=== PATIENT | male | born 1990 | race Caucasian/White ===

== ENCOUNTER 2024-02-06 16:18 | Observation (INO) | payer SELFPAY ==
[2024-02-06 16:23] VITALS: BP 145/93; PULSE 106; RESP 16; TEMP 36.9; O2SAT 98; BMI 26.9
[2024-02-06 17:37] LABS: Basophils # 0.1 10^3/uL (0.0-0.1); Basophils % 0.6 %; Eosinophils # 0.3 10^3/uL (0.0-0.8); Mean Corpuscular HGB Conc 32.6 g/dL (30-55); Mean Corpuscular Hemoglobin 32.1 pg (27-33); Mean Corpuscular Volume 98.3 fl (82-101); Mean Platelet Volume 11.1 fL (7.4-10.4); Monocytes # 1.1 10^3/uL (0.2-0.9); Monocytes % 8.8 %; Neutrophils # 8.39 10^3/uL (1.8-7.7); Neutrophils % 65.2 %; Nucleated Red Blood Cells % 0 %; Platelet Count 229 10^3/cmm (157-399); Red Blood Count 4.68 10^6/uL (3.85-5.65); Red Cell Distribution Width 12.5 % (12.1-15.1); White Blood Count 12.89 10^3/uL (3.29-11.43)
[2024-02-06 17:49] LABS: Alanine Aminotransferase 227 U/L (0-41); Albumin Level 4.4 g/dL (3.5-5.2); Alkaline Phosphatase 125 U/L (40-130); Aspartate Amino Transferase 347 U/L (0-40); Blood Urea Nitrogen 5 mg/dL (6-20); Calcium 8.6 mg/dL (8.5-10.5); Carbon Dioxide 24 mmol/L (22-29); Chloride 104 mmol/L (98-107); Creatinine Clr Calc Pharmacy 250.2943; Globulin 3.6 g/dL (1.3-4.6); Glomerular Filtration Rate 193.9 mL/min (90-130); Glucose 97 mg/dL (65-115); Osmolality Calculated 291 mOsm/kg (285-295); Sodium 142 mmol/L (136-145); Total Bilirubin 0.7 mg/dL (0.15-1.2)
[2024-02-06 19:01] LABS: Add Urine Microscopic? NO; Charge for UA Resulting for Rev
--- NOTE | 2024-02-06 19:02 | CTR_ITS ---
PROCEDURE INFORMATION: Exam: CT Abdomen And Pelvis With Contrast Exam date and time: 02/06/2024 8:04 PM Age: 33 years old Clinical indication: Abdominal pain; Other: Bilateral flank; Patient HX: Constipation 5 days; Additional info: Flank/abd pain x 1 week TECHNIQUE: Imaging protocol: Computed tomography of the abdomen and pelvis with contrast. Radiation optimization: All CT scans at this facility use at least one of these dose optimization techniques: automated exposure control; mA and/or kV adjustment per patient size (includes targeted exams where dose is matched to clinical indication); or iterative reconstruction. Contrast material: OMNI 350; Contrast volume: 100 ml; Contrast route: INTRAVENOUS (IV); COMPARISON: No relevant prior studies available. RADIATION DOSE METRICS: Total DLP (mGy-cm): 797 FINDINGS: Liver: Normal. No mass. Gallbladder and bile ducts: Gallbladder is somewhat prominent, ultrasound could further characterize this. Pancreas: Normal. No ductal dilation. Spleen: Normal. No splenomegaly. Adrenal glands: Normal. No mass. Kidneys and ureters: Normal. No hydronephrosis. Stomach and bowel: 12 mm small abscess containing fluid and air adjacent to the proximal sigmoid colon anteriorly, series 3, image 72, likely secondary to diverticulitis. Associated sigmoid colon wall thickening is also seen consistent with diverticulitis. Appendix: No evidence of appendicitis. Intraperitoneal space: Unremarkable. No free air. No significant fluid collection. Vasculature: Unremarkable. No abdominal aortic aneurysm. Lymph nodes: Unremarkable. No enlarged lymph nodes. Urinary bladder: Unremarkable as visualized. Reproductive: Unremarkable as visualized. Bones/joints: Unremarkable. No acute fracture. Soft tissues: Unremarkable. Other findings: Small amount of nonspecific fluid in the pelvis. CT/CT abdomen pelvis w con* [id number] IMPRESSION: 1. 12 mm small abscess containing fluid and air adjacent to the proximal sigmoid colon anteriorly, series 3, image 72, likely secondary to diverticulitis. Associated sigmoid colon wall thickening is also seen consistent with diverticulitis. 2. Small amount of nonspecific fluid in the pelvis. 3. Gallbladder is somewhat prominent, ultrasound could further characterize this.
--- NOTE | 2024-02-06 19:03 | ED_ITS ---
Documented by User: YANCY Quinones 02/06/24 21:16 HPI - Abdominal Pain 2 General: Chief Complaint: Abdominal Pain Stated Complaint: Burning in kidneys & Rash Time Seen by Provider: 02/06/24 18:57 Source: patient Mode of arrival: ambulatory Limitations: no limitations History of Present Illness: Patient is a 33-year-old male presenting to the emergency department complaining of bilateral flank pain onset 1 week. Patient states my kidneys are burning and states that he has been having some burning with urination. He also notes that the pain seems to wrap around ventrally to his abdomen, denies any personal history of pyelonephritis or kidney stones. He also notes that he is unable to eat due to the amount of nausea he has been having. He denies any blood in his urine though notes it has been very dark. He states he is a hypochondriac and just wants to make sure he is not in kidney failure. He also is noting a rash that has been treated in the past with topical antifungals, and states that his back. No other symptoms to report at this time. He states currently his pain is a 5/10. It does feel sharp, and overall has been constant since onset. MD elicited complaint: flank pain Pertinent past history: none Onset (ago): week(s) Pain Consistency: constant Location: L flank and R flank Severity: moderate Quality: sharp Radiation: LLQ and RLQ Exacerbating factors: nothing Relieving factors: nothing Associated Symptoms: Reports dysuria, nausea and vomiting; Denies bloating, change in stool character, chills, constipation, diarrhea, fever(s) and hematochezia Review of Systems 2 General: Reports: 10 or more systems reviewed and unremarkable except in HPI and below Const: Denies: fever(s), chills, change in appetite, change in weight or diaphoresis ENMT: Denies: throat pain or hoarseness Card: Denies: chest pain, palpitations or lightheadedness Resp: Denies: dyspnea, productive cough or wheezing GI: Reports: abdominal pain, nausea and vomiting; Denies: diarrhea, constipation, bloating, change in stool character or hematochezia : Reports: flank pain and dysuria; Denies: difficulty urinating, urinary frequency or urinary urgency Musc: Denies: neck pain or back pain Skin/Breast: Reports: rash; Denies: new lesions Neuro: Denies: headache(s) or dizziness PFSH ED 2 PFSH: Medical History Migraines Surgical History History of surgery on arm Family History Mother Irritable bowel syndrome (IBS) Social History Smoking and tobacco/nicotine status: current every day tobacco/nicotine user Alcohol intake: current Substance/Drug Use: current Physical Exam 2 Const: COMMON NORMALS: no acute distress, average body habitus, patient oriented x3, no limitations, healthy appearing, alert and well nourished G ENERAL APPEARANCE: cooperative and comfortable ORIENTATION/CONSCIOUSNESS: Yes awake HENMT: COMMON NORMALS: normocephalic, atraumatic, hearing grossly normal bilaterally, external ears normal, Normal external nose present, Normal nasal mucous membranes and turbinates present and moist oral mucous membranes HEAD & SCALP: normocephalic and atraumatic NOSE: Normal external nose present and Normal nasal mucous membranes and turbinates present EXTERNAL EAR: Yes external ears normal Eye: COMMON NORMALS: Equal, round and reactive pupils present, EOMs intact bilaterally, conjunctivae normal and normal visual box by confrontation C ONJUNCTIVA: Yes conjunctivae normal PUPIL: Yes Equal, round and reactive pupils present Neck/C-Spine: COMMON NORMALS: full ROM, supple, no meningeal signs and no JVD Resp: COMMON NORMALS: normal respiratory effort, No retractions, No use of accessory muscles and clear to auscultation bilaterally AUSCULTATION: clear to auscultation bilaterally, no crackles, no rales, no rhonchi and no wheezes Cardio: COMMON NORMALS: no JVD, regular rate, regular rhythm, S1 normal heart sound present, S2 normal heart sound present, No gallops present (Cardio), No clicks present (Cardio), No murmurs present (Cardio), No rub (Cardio) and Peripheral pulses 2+ throughout RATE: regular rate RHYTHM: regular rhythm HEART SOUNDS: S1 normal heart sound present and S2 normal heart sound present PERIPHERAL PULSES: Peripheral pulses 2+ throughout GI: COMMON NORMALS: Normal to inspection, nondistended, normoactive bowel sounds present, Soft to palpation, non-tender, No hepatosplenomegaly present and no masses AUSCULTATION: Yes normoactive bowel sounds PALPATION: Yes Soft to palpation, No Guarding due to palpation present (GI), No Rigid due to palpation and Yes No hepatosplenomegaly present RECTAL EXAM: Yes deferred : COMMON NORMALS: Yes no CVA tenderness BLADDER/KIDNEY EXAM: Yes no CVA tenderness Back/Pelvis: COMMON NORMALS: no CVA tenderness Extremity: COMMON NORMALS: normal to inspection and full ROM Neuro: COMMON NORMALS: patient oriented x3, moves all extremities, no focal motor deficits and no sensory deficits noted SENSORIUM/ORIENTATION: Yes alert MENINGEAL SIGNS: Yes no meningeal signs Psych: COMMON NORMALS: mental status grossly normal, cooperative and speech normal SPEECH: Yes normal speech Skin: NARRATIVE SKIN EXAM: Fungal appearing rash to patient's neck and bilateral shoulders. Course 2 Vital Signs: Vital signs: Vital Signs Temperature 97.8 F 02/09/24 14:35 Pulse Rate 57 L 02/09/24 14:35 Respiratory Rate 18 02/09/24 14:35 Blood Pressure 127/77 02/09/24 14:35 Pulse Oximetry 98 02/09/24 14:35 Oxygen Delivery Me thod Room Air 02/09/24 11:48 MDM - Abdominal Pain Medical Decision Making Patient came in for evaluation of bilateral flank pain. Patient was anxious on examination, though overall his examination was unremarkable. Basic lab work and urinalysis was all negative. I did scan his abdomen and pelvis via CT, the did show incidental 12 mm abscess to the sigmoid colon, likely secondary to diverticulitis. I did speak with on-call general surgeon, Dr. Cuenca, who will see the patient after admission to medicine. I then spoke with Dr. Vela, hospitalist, who will see the patient in the hospital. Patient is started on antibiotics, morphine, fluids, and Zofran. He is informed of admission and verbalizes understanding. Lab Data 02/08/24 08:50 02/08/24 08:50 Labs/Radiology: Radiology Impressions Abdomen/Pelvis CT 02/06/24 19:02 IMPRESSION: 1. 12 mm small abscess containing fluid and air adjacent to the proximal sigmoid colon anteriorly, series 3, image 72, likely secondary to diverticulitis. Associated sigmoid colon wall thickening is also seen consistent with diverticulitis. 2. Small amount of nonspecific fluid in the pelvis. 3. Gallbladder is somewhat prominent, ultrasound could further characterize this. ADDENDUM: 02/06/242056 THIS REPORT CONTAINS FINDINGS THAT MAY BE CRITICAL TO PATIENT CARE. The findings were verbally communicated via telephone conference with AVANI VELASCO at 8:56 PM CDT on 02/06/2024. The findings were acknowledged and understood. Laboratory Results WBC 12.89 10^3/uL (3.29-11.43) H 02/06/24 17:10 RBC 4.68 10^6/uL (3.85-5.65) 02/06/24 17:10 Hgb 15.00 g/dL (11.27-16.99) 02/06/24 17:10 Hct 46.0 % (37-53) 02/06/24 17:10 MCV 98.3 fl (82-101) 02/06/24 17:10 MCH 32.1 pg (27-33) 02/06/24 17:10 MCHC 32.6 g/dL (30-55) 02/06/24 17:10 RDW 12.5 % (12.1-15.1) 02/06/24 17:10 Plt Count 229 10^3/cmm (157-399) 02/06/24 17:10 MPV 11.1 fL (7.4-10.4) H 02/06/24 17:10 Neut % (Auto) 65.2 % 02/06/24 17:10 Lymph % (Auto) 23.0 % 02/06/24 17:10 Wood % (Auto) 8.8 % 02/06/24 17:10 Eos % (Auto) 2.0 % 02/06/24 17:10 Baso % (Auto) 0.6 % 02/06/24 17:10 Neut # (Auto) 8.39 10^3/uL (1.8-7.7) H 02/06/24 17:10 Lymph # (Auto) 3.0 10^3/uL (0.8-4.8) 02/06/24 17:10 Wood # (Auto) 1.1 10^3/uL (0.2-0.9) H 02/06/24 17:10 Eos # (Auto) 0.3 10^3/uL (0.0-0.8) 02/06/24 17:10 Baso # (Auto) 0.1 10^3/uL (0.0-0.1) 02/06/24 17:10 Nucleated RBC % (auto) 0 % 02/06/24 17:10 Nucleated RBCs # 0.0 /100WBC 02/06/24 17:10 Sodium 142 mmol/L (136-145) 02/06/24 17:10 Potassium 4.0 mmol/L (3.5-5.1) 02/06/24 17:10 Chloride 104 mmol/L (98-107) 02/06/24 17:10 Carbon Dioxide 24 mmol/L (22-29) 02/06/24 17:10 Anion Gap 18.0 (5-19) 02/06/24 17:10 BUN 5 mg/dL (6-20) L 02/06/24 17:10 Creatinine 0.5 mg/dL (0.7-1.2) L 02/06/24 17:10 GFR Calculation 193.9 mL/min (90-130) H 02/06/24 17:10 Glucose 97 mg/dL (65-115) 02/06/24 17:10 Calculated Osmolality 291 mOsm/kg (285-295) 02/06/24 17:10 Calcium 8.6 mg/dL (8.5-10.5) 02/06/24 17:10 Total Bilirubin 0.7 mg/dL (0.15-1.2) 02/06/24 17:10 AST 347 U/L (0-40) H 02/06/24 17:10 ALT 227 U/L (0-41) H 02/06/24 17:10 Alkaline Phosphatase 125 U/L (40-130) 02/06/24 17:10 Total Protein 8.0 g/dL (6.6-8.7) 02/06/24 17:10 Albumin 4.4 g/dL (3.5-5.2) 02/06/24 17:10 Globulin 3.6 g/dL (1.3-4.6) 02/06/24 17:10 Urine Color Yellow (Yellow) 02/06/24 18:53 Urine Appearance Clear (CLEAR) 02/06/24 18:53 Urine pH 6 (5-7) 02/06/24 18:53 Ur Specific [place] 1.020 (1.005-1.030) 02/06/24 18:53 Urine Protein Neg (Negative) 02/06/24 18:53 Urine Glucose (UA) Norm (Normal) 02/06/24 18:53 Urine Ketones 1+ (Negative) H 02/06/24 18:53 Urine Blood Neg (Negative) 02/06/24 18:53 Urine Nitrate Negative (Negative) 02/06/24 18:53 Urine Bilirubin 2+ (Negative) H 02/06/24 18:53 Urine Urobilinogen 4+ mg/dL (Negative) H 02/06/24 18:53 Ur Leukocyte Esterase Negative (Negative) 02/06/24 18:53 All radiology interpretation(s) finalized by discharge Discharge Plan Discharge Patient Disposition: Placed in Observation Admit Provider: Misha Vela Clinical Impression: Abscess of sigmoid colon Discharge Diet: Full LIquid Coding Level of Care Code ED Ultra Sound Technician for Chg Fwd Documented by User: Harvey Dunaway DO 02/10/24 06:24 HPI - Abdominal Pain 2 General: Chief Complaint: Abdominal Pain Stated Complaint: Burning in kidneys & Rash Time Seen by Provider: 02/06/24 18:57 PFS ED 2 PFSH: Medical History Migraines Surgical History History of surgery on arm Family History Mother Irritable bowel syndrome (IBS) Social History Smoking and tobacco/nicotine status: current every day tobacco/nicotine user Alcohol intake: current Substance/Drug Use: current Course 2 Vital Signs: Vital signs: Vital Signs Temperature 97.8 F 02/09/24 14:35 Pulse Rate 57 L 02/09/24 14:35 Respiratory Rate 18 02/09/24 14:35 Blood Pressure 127/77 02/09/24 14:35 Pulse Oximetry 98 02/09/24 14:35 Oxygen Delivery Me thod Room Air 02/09/24 11:48 MDM - Abdominal Pain Medical Decision Making Patient came in for evaluation of bilateral flank pain. Patient was anxious on examination, though overall his examination was unremarkable. Basic lab work and urinalysis was all negative. I did scan his abdomen and pelvis via CT, the did show incidental 12 mm abscess to the sigmoid colon, likely secondary to diverticulitis. I did speak with on-call general surgeon, Dr. Cuenca, who will see the patient after admission to medicine. I then spoke with Dr. Vela, hospitalist, who will see the patient in the hospital. Patient is started on antibiotics, morphine, fluids, and Zofran. He is informed of admission and verbalizes understanding. Chart reviewed Lab Data 02/08/24 08:50 02/08/24 08:50 Labs/Radiology: Radiology Impressions Abdomen/Pelvis CT 02/06/24 19:02 IMPRESSION: 1. 12 mm small abscess containing fluid and air adjacent to the proximal sigmoid colon anteriorly, series 3, image 72, likely secondary to diverticulitis. Associated sigmoid colon wall thickening is also seen consistent with diverticulitis. 2. Small amount of nonspecific fluid in the pelvis. 3. Gallbladder is somewhat prominent, ultrasound could further characterize this. ADDENDUM: 02/06/242056 THIS REPORT CONTAINS FINDINGS THAT MAY BE CRITICAL TO PATIENT CARE. The findings were verbally communicated via telephone conference with AVANI VELASCO at 8:56 PM CDT on 02/06/2024. The findings were acknowledged and understood. Laboratory Results WBC 12.89 10^3/uL (3.29-11.43) H 02/06/24 17:10 RBC 4.68 10^6/uL (3.85-5.65) 02/06/24 17:10 Hgb 15.00 g/dL (11.27-16.99) 02/06/24 17:10 Hct 46.0 % (37-53) 02/06/24 17:10 MCV 98.3 fl (82-101) 02/06/24 17:10 MCH 32.1 pg (27-33) 02/06/24 17:10 MCHC 32.6 g/dL (30-55) 02/06/24 17:10 RDW 12.5 % (12.1-15.1) 02/06/24 17:10 Plt Count 229 10^3/cmm (157-399) 02/06/24 17:10 MPV 11.1 fL (7.4-10.4) H 02/06/24 17:10 Neut % (Auto) 65.2 % 02/06/24 17:10 Lymph % (Auto) 23.0 % 02/06/24 17:10 Wood % (Auto) 8.8 % 02/06/24 17:10 Eos % (Auto) 2.0 % 02/06/24 17:10 Baso % (Auto) 0.6 % 02/06/24 17:10 Neut # (Auto) 8.39 10^3/uL (1.8-7.7) H 02/06/24 17:10 Lymph # (Auto) 3.0 10^3/uL (0.8-4.8) 02/06/24 17:10 Wood # (Auto) 1.1 10^3/uL (0.2-0.9) H 02/06/24 17:10 Eos # (Auto) 0.3 10^3/uL (0.0-0.8) 02/06/24 17:10 Baso # (Auto) 0.1 10^3/uL (0.0-0.1) 02/06/24 17:10 Nucleated RBC % (auto) 0 % 02/06/24 17:10 Nucleated RBCs # 0.0 /100WBC 02/06/24 17:10 Sodium 142 mmol/L (136-145) 02/06/24 17:10 Potassium 4.0 mmol/L (3.5-5.1) 02/06/24 17:10 Chloride 104 mmol/L (98-107) 02/06/24 17:10 Carbon Dioxide 24 mmol/L (22-29) 02/06/24 17:10 Anion Gap 18.0 (5-19) 02/06/24 17:10 BUN 5 mg/dL (6-20) L 02/06/24 17:10 Creatinine 0.5 mg/dL (0.7-1.2) L 02/06/24 17:10 GFR Calculation 193.9 mL/min (90-130) H 02/06/24 17:10 Glucose 97 mg/dL (65-115) 02/06/24 17:10 Calculated Osmolality 291 mOsm/kg (285-295) 02/06/24 17:10 Calcium 8.6 mg/dL (8.5-10.5) 02/06/24 17:10 Total Bilirubin 0.7 mg/dL (0.15-1.2) 02/06/24 17:10 AST 347 U/L (0-40) H 02/06/24 17:10 ALT 227 U/L (0-41) H 02/06/24 17:10 Alkaline Phosphatase 125 U/L (40-130) 02/06/24 17:10 Total Protein 8.0 g/dL (6.6-8.7) 02/06/24 17:10 Albumin 4.4 g/dL (3.5-5.2) 02/06/24 17:10 Globulin 3.6 g/dL (1.3-4.6) 02/06/24 17:10 Urine Color Yellow (Yellow) 02/06/24 18:53 Urine Appearance Clear (CLEAR) 02/06/24 18:53 Urine pH 6 (5-7) 02/06/24 18:53 Ur Specific [place] 1.020 (1.005-1.030) 02/06/24 18:53 Urine Protein Neg (Negative) 02/06/24 18:53 Urine Glucose (UA) Norm (Normal) 02/06/24 18:53 Urine Ketones 1+ (Negative) H 02/06/24 18:53 Urine Blood Neg (Negative) 02/06/24 18:53 Urine Nitrate Negative (Negative) 02/06/24 18:53 Urine Bilirubin 2+ (Negative) H 02/06/24 18:53 Urine Urobilinogen 4+ mg/dL (Negative) H 02/06/24 18:53 Ur Leukocyte Esterase Negative (Negative) 02/06/24 18:53 Discharge Plan Discharge Patient Disposition: Placed in Observation Admit Provider: Misha Vela Clinical Impression: Abscess of sigmoid colon Discharge Diet: Full LIquid Coding Level of Care Code ED Ultra Sound Technician for Chg Fwd
[2024-02-06 19:17] LABS: Bilirubin Urine 2+ (Negative); Blood Urine Neg (Negative); Glucose Urine UA Norm (Normal); Ketones Urine 1+ (Negative); Leukocyte Esterase Urine Negative (Negative); Nitrate Urine Negative (Negative); Protein Urine Neg (Negative); Urine Appearance Clear (CLEAR); Urine Color Yellow (Yellow); Urobilinogen Urine 4+ mg/dL (Negative); pH Urine 6 (5-7)
[2024-02-06] MEDS: ketorolac 60 mg/2 mL INJ 30 MG IVP (19:22)
[2024-02-06] MEDS: metoclopramide 5 mg/mL SDV 2 mL 10 MG IVP (19:24)
[2024-02-06] MEDS: iohexol 350 mg/mL 500 mL Btl (per mL) IV (20:06)
--- NOTE | 2024-02-06 21:04 | P.HP_ITS ---
Providers/Chief Complaint 2 Chief Complaint: Burning in kidneys & Rash History of Present Illness Chris Medellin is a 33 year old male with past medical history significant for migraines who presents emergency department with abdominal and back pain x 7 days. He describes the location of this pain is bilateral lower quadrant abdominal pain as well as bilateral lower back pains. He currently rates his pain 5 out of 10. Describes the pain as constant and sharp. He endorses associated nausea, subjective fevers, and constipation. Reports he took [id number] constipation medication earlier in the week with some improvement. In the emergency department, patient was found to be tachycardic. Labs revealed leukocytosis. CT imaging revealed 12 mm abscess adjacent to the proximal sigmoid colon associated with diverticulitis. Patient denies prior history of known diverticulitis. He denies family history of diverticulitis. Denies family history of colon cancer. Patient reports never had a colonoscopy. Patient was started on Zosyn. General surgery was consulted and agreed to see the patient in the a.m. Review of Systems 2 Narrative: A complete review of systems was obtained and is negative except as stated in HPI. Medications/Allergies Allergies Allergy/AdvReac Type Severity Reaction Status Date / Time cefixime [From Suprax] Allergy Unknown Verified 02/06/24 16:27 Sulfa (Sulfonamide Allergy Unknown Verified 02/06/24 16:27 Antibiotics) PFSH Acute 2 PFSH: Medical History Migraines Surgical History History of surgery on arm Family History Mother Irritable bowel syndrome (IBS) Social History Smoking and tobacco/nicotine status: current every day tobacco/nicotine user Alcohol intake: current Substance/Drug Use: current Vitals/I&O/Wt Last Vital Signs Temp 98.4 F 02/06/24 16:23 Pulse 106 H 02/06/24 16:23 Resp 16 02/06/24 16:23 BP 145/93 02/06/24 16:23 Pulse Ox 98 02/06/24 16:23 O2 Del Method Room Air 02/06/24 16:23 Weight last 48 hrs Weight 90.265 kg Physical Exam 2 Narrative: General: Patient is awake and alert. Head: Normocephalic. Atraumatic. EOM intact. Neck: No JVD. Cardiovascular: RRR. No gallops. No murmurs. No peripheral edema. Lungs: Clear to auscultation, no use of accessory muscles, no crackles or wheezes. Skin: No jaundice. No rashes. Abdomen: Normal bowel sounds. Abdomen is tender to palpation in lower quadrants. Genito Urinary: Genital exam not performed since complaints not related. Rectal: Rectal exam not performed since no symptoms indicated blood loss. Extremities: No cyanosis or clubbing. Musculoskeletal: 5/5 strength, normal range of motion, no swollen or erythematous joints. Neurological: Moves all 4 extremities. No myoclonus. Data 02/06/24 17:10 02/06/24 17:10 A&P Assessment and plan (1) Diverticulitis: Acute complicated sigmoidal diverticulitis with abscess formation and sepsis SIRS: Tachycardic and Leukocytosis with source being diverticulitis w/ abscess Abscess noted to be less than 3 cm, measuring 1.[address] imaging Patient started on Zosyn by ED provider, will continue with Zosyn Clear liquid diet Antiemetics as needed Analgesics as needed General surgery consulted Consider outpatient colonoscopy after complete recovery (2) Transaminitis: Suspect secondary to alcohol use disorder with alcohol abuse AST greater than ALT Patient reports he drinks alcohol every other day Denies history of alcohol withdrawal Monitor for symptoms of withdrawal Will consider CIWA protocol pending clinical course (3) Tobacco use: Reports typically half a pack to 1 pack/day We discussed nicotine replacement, patient declined He would benefit from smoking cessation (4) Marijuana use: Would benefit from cessation (5) Migraines: Analgesics as needed as above Plan DVT prophylaxis: Lovenox CODE STATUS: Full code Attestations 2 Medical Necessity Statement*: Patient presents with abdominal and flank pain, found to have acute complicated sigmoidal diverticulitis with abscess formation producing sepsis with expected hospitalization not to cross 2 midnights for IV antibiotics, general surgery evaluation, and supportive care. Coding Level of Care Code Acute Code for [facility] Diagnoses Diverticulitis K57.92 Transaminitis R74.01 Tobacco use Z72.0 Marijuana use F12.90 Migraines G43.909
[2024-02-06 21:47] VITALS: RESP 16; O2SAT 96
[2024-02-06] MEDS: ondansetron 2 mg/ML SDV 2 mL 4 MG IVP (21:47)
[2024-02-06] MEDS: morphine 4 mg/mL SDV 1 mL IVP (21:47)
[2024-02-06] MEDS: piperacillin-tazobactam 3.375 GM in sodium chloride 0.9% (plus) 50 ML IV (21:48)
[2024-02-06] MEDS: sodium chloride 0.9% 1,000 ML 999 ML IV (21:58)
[2024-02-06 22:45] VITALS: BP 145/79; PULSE 76; RESP 20; TEMP 36.9; O2SAT 95
[2024-02-06] MEDS: dextrose 5%-sod chloride 0.45% 1,000 ML 100 ML IV (23:43)
[2024-02-06] MEDS: enoxaparin 40 mg/0.4 mL Syringe SUBCUT (23:44)
[2024-02-06 23:47] VITALS: RESP 20; O2SAT 95
[2024-02-06] MEDS: oxyCODONE-APAP 5-325 mg Tablet 1 TAB PO (23:47)
[2024-02-07] VITALS (14 sets, daily range): BP systolic 107–130; BP diastolic 30–79; PULSE 59–76; RESP 14–20; TEMP 36.4–36.7; O2SAT 93–99
[2024-02-07] MEDS: nicotine 4 mg lozenge MUCOUS MEM (00:23)
[2024-02-07] MEDS: morphine 4 mg/mL SDV 1 mL 2 MG IVP ×5 (01:58→20:44)
[2024-02-07] MEDS: oxyCODONE-APAP 5-325 mg Tablet 1 TAB PO ×5 (04:36→22:13)
[2024-02-07 04:40] LABS: Basophils # 0.1 10^3/uL (0.0-0.1); Eosinophils # 0.3 10^3/uL (0.0-0.8); Eosinophils % 2.6 %; Lymphocytes # 2.9 10^3/uL (0.8-4.8); Lymphocytes % 27.2 %; Mean Corpuscular HGB Conc 32.8 g/dL (30-55); Mean Corpuscular Hemoglobin 32.2 pg (27-33); Mean Platelet Volume 11.5 fL (7.4-10.4); Monocytes # 1.1 10^3/uL (0.2-0.9); Monocytes % 10.6 %; Neutrophils # 6.15 10^3/uL (1.8-7.7); Neutrophils % 58.2 %; Nucleated Red Blood Cells % 0 %; Platelet Count 179 10^3/cmm (157-399); Red Blood Count 3.98 10^6/uL (3.85-5.65); Red Cell Distribution Width 12.4 % (12.1-15.1); White Blood Count 10.58 10^3/uL (3.29-11.43)
[2024-02-07 05:03] LABS: Alanine Aminotransferase 155 U/L (0-41); Albumin Level 3.5 g/dL (3.5-5.2); Alkaline Phosphatase 95 U/L (40-130); Anion Gap 12.6 (5-19); Aspartate Amino Transferase 188 U/L (0-40); Blood Urea Nitrogen 7 mg/dL (6-20); Calcium 8.2 mg/dL (8.5-10.5); Carbon Dioxide 23 mmol/L (22-29); Chloride 104 mmol/L (98-107); Globulin 2.8 g/dL (1.3-4.6); Glomerular Filtration Rate 193.9 mL/min (90-130); Glucose 95 mg/dL (65-115); Osmolality Calculated 280 mOsm/kg (285-295); Phosphorus 3.2 mg/dL (2.5-4.5); Potassium 3.6 mmol/L (3.5-5.1); Sodium 136 mmol/L (136-145); Total Bilirubin 0.6 mg/dL (0.15-1.2); Total Protein 6.3 g/dL (6.6-8.7)
[2024-02-07 05:04] LABS: Creatinine Clr Calc Pharmacy 254.7984
[2024-02-07] MEDS: piperacillin-tazobactam 3.375 GM in sodium chloride 0.9% (plus) 50 ML IV ×3 (06:20→22:14)
--- NOTE | 2024-02-07 09:35 | PC.CHAP ---
Pastoral Care Encounter/Spiritual Assessment Type of Contact [] Declined immigration patrol inspector visit [] Patient/Family/Request visit [] Outpatient visit [] Follow-up visit [] Physician referral [] Code/Alert [x] Routine visit [] Staff referral [] Actively dying [] Patient sleeping [] Family support [] [] Out of room [] Palliative care [] [] Receiving care in room [] Pre-surgical visit [] Trauma [] Long length of stay [] ICU visit [] Other: Relational/Emotional Strength [x] Patient feels connected with others/family/visitors/staff [] Distress [] Loneliness/isolation [] Abandonment Spirituality of Patient [x] Person of Mei [] Attends Catholic of their Mei [x] Believes in Prayer [] Reads Bible or Mormonism materials [] There are Spiritual issues to be addressed Development Lead Interventions [x] Prayer [] Active listening [] Non-anxious presence [x] Spiritual/emotional support [] Crisis/trauma care [] Spiritual counseling [] Bereavement support [] Provided bereavement packet [] Provided Bible/devotional materials [] Provided toy/stuffed animal, coloring book to patient or family member [] Provided Communion [] Anointing/[place] [] Salvation [x] Completed spiritual assessment [] Other: Impact on Illness or Injury [] Angry [] Fearful [] Anxious [] Often cries [] Exhaustion [] Unable to work [] Unable to attend episcopalian [] Unable to walk/stand [] Unable to read [] Unable to drive [] Unable to eat/drink [] Unable to sleep [] Unable to be with family [] Patient intubated [] Other: Summary Time spent with patient 5 min
[2024-02-07] MEDS: nicotine 2 mg Gum 4 MG BUCCAL ×2 (11:38→17:52)
[2024-02-07] MEDS: dextrose 5%-sod chloride 0.45% 1,000 ML 100 ML IV (11:39)
--- NOTE | 2024-02-07 11:46 | PC.NURSE ---
Morphine 2mg given to patient. 2mg wasted with SEDA Villarreal on medsur floor.
--- NOTE | 2024-02-07 13:31 | P.PN_ITS ---
Subjective 2 Subjective: seen this morning has mild abd pain Vitals/I&O/Wt Last Vital Signs Temp 97.7 F 02/07/24 12:09 Pulse 62 02/07/24 12:09 Resp 16 02/07/24 13:11 BP 113/75 02/07/24 12:09 Pulse Ox 93 02/07/24 12:09 O2 Del Method Room Air 02/07/24 12:09 02/06/24 02/07/24 02/07/24 22:59 06:59 14:59 Intake Total 50 / 50 1480 / 1530 2009 Balance 50 / 50 1480 / 1530 2009 Weight last 48 hrs Weight 93.984 kg Weight 93.758 kg Weight 90.265 kg Physical Exam 2 Narrative: General: Patient is awake and alert. Head: Normocephalic. Atraumatic. EOM intact. Cardiovascular: RRR. No gallops. No murmurs. No peripheral edema. Lungs: Clear to auscultation, no use of accessory muscles, no crackles or wheezes. Abdomen: Normal bowel sounds. Abdomen is tender to palpation in lower quadrants. Extremities: No cyanosis or clubbing. Musculoskeletal: 5/5 strength, normal range of motion, no swollen or erythematous joints. Neurological: Moves all 4 extremities. No myoclonus. Data 02/07/24 04:19 02/07/24 04:19 A&P Assessment and plan (1) Diverticulitis: Acute complicated sigmoidal diverticulitis with abscess formation and sepsis SIRS: Tachycardic and Leukocytosis with source being diverticulitis w/ abscess Abscess noted to be less than 3 cm, measuring 1.[address] imaging Patient started on Zosyn by ED provider, will continue with Zosyn atleast for 48 hours Clear liquid diet Antiemetics as needed Analgesics as needed General surgery consulted Consider outpatient colonoscopy after complete recovery (2) Transaminitis: Suspect secondary to alcohol use disorder with alcohol abuse AST greater than ALT Patient reports he drinks alcohol every other day Denies history of alcohol withdrawal Monitor for symptoms of withdrawal Will consider CIWA protocol pending clinical course (3) Tobacco use: Reports typically half a pack to 1 pack/day We discussed nicotine replacement, patient declined He would benefit from smoking cessation (4) Marijuana use: Would benefit from cessation (5) Migraines: Analgesics as needed as above Plan DVT prophylaxis: Lovenox CODE STATUS: Full code Attestations 2 Medical Necessity Statement*: Patient presents with abdominal and flank pain, found to have acute complicated sigmoidal diverticulitis with abscess formation producing sepsis with expected hospitalization not to cross 2 midnights for IV antibiotics, general surgery evaluation, and supportive care. Diagnoses Diverticulitis K57.92 Transaminitis R74.01 Tobacco use Z72.0 Marijuana use F12.90 Migraines G43.909
--- NOTE | 2024-02-07 13:54 | P.CONIM_ITS ---
Providers/Reason For Consult 2 Consulting Physician/Specialty*: Dr. Anmol Cuenca, DO/General surgery Reason for Consult*: Complicated diverticulitis Attending Physician: Yanet Law MD History of Present Illness History of Present Illness Chris Medellin is a 33 year old male who presented to the hospital with 1 week history of left lower quadrant abdominal pain. The pain radiates to his back and across his abdomen. Palpation and movement make the pain worse. Nothing makes pain better. Pain is sharp in nature. She does report chills at home but denies any nausea or vomiting. Denies any hematochezia and/or melena. 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 CT of the abdomen pelvis showed complicated sigmoid diverticulitis with abscess formation. Abscess measures less than 3 cm. He was septic on arrival but that has resolved Review of Systems 2 General: Reports: 10 or more systems reviewed and unremarkable except in HPI and below Medications/Allergies Home Medications Medication Instructions Recorded Confirmed Last Taken Type ibuprofen 200 mg tablet 600 - 800 mg PO Q6H PRN Pain 02/07/24 02/07/24 Unknown History Allergies Allergy/AdvReac Type Severity Reaction Status Date / Time cefixime [From Suprax] Allergy Unknown Verified 02/06/24 16:27 Sulfa (Sulfonamide Allergy Unknown Verified 02/06/24 16:27 Antibiotics) Current Medications Generic Name Dose Route Start Last Admin Trade Name Freq PRN Reason Stop Dose Admin Enoxaparin Sodium 40 mg 02/06/24 22:45 02/06/24 23:44 Enoxaparin 40 Mg/0.4 Ml Syringe SUBCUT 40 mg Q24H SHASTA Administration Piperacillin Sod/Tazobactam 50 mls @ 12.5 mls/hr 02/07/24 06:00 02/07/24 13:12 Sod 3.375 gm/ Sodium Chloride IV 12.5 mls/hr Q8H SHASTA Administration Sodium Chloride 1,000 mls @ 100 mls/hr 02/07/24 13:45 02/07/24 14:33 Sodium Chloride 0.9% IV 100 mls/hr .Q10H SHASTA Administration Morphine Sulfate 2 mg 02/06/24 22:45 02/07/24 11:38 Morphine 4 Mg/Ml Sdv 1 Ml IVP 2 mg Q4H PRN Administration SEVERE PAIN Nicotine Polacrilex 4 mg 02/06/24 23:31 02/07/24 00:23 Nicotine 4 Mg Lozenge MUCOUS MEM 4 mg Q2H PRN Administration NICOTINE CRAVINGS Nicotine Polacrilex 4 mg 02/07/24 09:50 02/07/24 11:38 Nicotine 2 Mg Gum BUCCAL 4 mg Q2H PRN Administration NICOTINE CRAVINGS Oxycodone/Acetaminophen 1 tab 02/06/24 22:45 02/07/24 13:11 Oxycodone-Apap 5-325 Mg Tablet PO 1 tab Q4H PRN Administration MODERATE PAIN PFSH Acute 2 PFSH: Medical History Migraines Surgical History History of surgery on arm Family History Mother Irritable bowel syndrome (IBS) Social History Smoking and tobacco/nicotine status: current every day tobacco/nicotine user Alcohol intake: current Substance/Drug Use: current Vitals/I&O/Wt Last Vital Signs Temp 97.7 F 02/07/24 12:09 Pulse 62 02/07/24 12:09 Resp 16 02/07/24 13:11 BP 113/75 02/07/24 12:09 Pulse Ox 93 02/07/24 12:09 O2 Del Method Room Air 02/07/24 12:09 02/07/24 02/07/24 02/07/24 06:59 14:59 22:59 Intake Total 1480 / 1530 2301.667 / 2301.667 Balance 1480 / 1530 2301.667 / 2301.667 Weight last 48 hrs Weight 207 lb 3.2 oz Weight 206 lb 11.2 oz Weight 199 lb Physical Exam 2 Narrative: General : Patient is well developed , no acute distress, oriented x3 Head : Normal cephalic, a-traumatic. Ears : Pinnae and external canal are normal. Hearing is normal. Eyes : PERRLA, Sclera and injection are normal. No conjunctival discharge. Nose : Mucous membranes are without erythema. Throat : buccal mucosa is normal, gums are without significant recession or hypertrophy. Lungs : Equal chest rise bilaterally, no use of accessory muscles, trachea is midline. Cor : Rate and rhythm are normal. Abdomen : Soft, ND, tender to palpation left lower quadrant with some guarding no r/m Extremities : No edema, no cyanosis or clubbing, dorsalis pedis pulses are present bilaterally, non-tender to palpation of calves. Upper extremities are normal bilaterally. Back : non-tender to palpation, no CVA tenderness. Neuro : CN II - XII intact, Upper and lower extremities have equal and full strength Data 02/07/24 04:19 02/07/24 04:19 A&P Assessment and plan (1) Diverticulitis of large intestine with complication: (2) Sepsis: Plan IV antibiotics N.p.o. except for ice chips He will need a minimum of 48 to 72 hours of IV antibiotics and at least a total antibiotic course, likely to be completed with Augmentin at home, of 2 weeks Colonoscopy in 4 to 6 weeks Recommend elective sigmoidectomy following colonoscopy Medical management per hospitalist Coding Level of Care Code 46941 Diagnoses Diverticulitis of large intestine with complication K57.32 Sepsis A41.9
[2024-02-07] MEDS: sodium chloride 0.9% 1,000 ML 100 ML IV ×2 (14:33→22:14)
--- NOTE | 2024-02-07 16:31 | PC.NURSE ---
2mg morphine administered to pt, 2mg morphine wasted.
[2024-02-07] MEDS: sennosides 8.6 mg Tablet 17.1999999999999993 MG PO (20:44)
[2024-02-07] MEDS: enoxaparin 40 mg/0.4 mL Syringe SUBCUT (22:20)
[2024-02-08] VITALS (10 sets, daily range): BP systolic 107–136; BP diastolic 67–82; PULSE 57–66; RESP 16–18; TEMP 36.6–36.8; O2SAT 94–100
[2024-02-08] MEDS: morphine 4 mg/mL SDV 1 mL 2 MG IVP ×3 (02:53→22:19)
[2024-02-08] MEDS: piperacillin-tazobactam 3.375 GM in sodium chloride 0.9% (plus) 50 ML IV ×3 (05:13→22:17)
[2024-02-08] MEDS: sodium chloride 0.9% 1,000 ML 100 ML IV ×2 (08:23→17:40)
--- NOTE | 2024-02-08 08:59 | PC.NURSE ---
Patient wanted pain medications. Upon going to give pain med patient is half snoring. Returned pain medication.
[2024-02-08 09:02] LABS: Basophils # 0.1 10^3/uL (0.0-0.1); Eosinophils # 0.3 10^3/uL (0.0-0.8); Eosinophils % 3.7 %; Hematocrit 41.2 % (37-53); Lymphocytes # 1.9 10^3/uL (0.8-4.8); Lymphocytes % 24.1 %; Mean Platelet Volume 10.5 fL (7.4-10.4); Monocytes # 0.7 10^3/uL (0.2-0.9); Monocytes % 9.1 %; Neutrophils # 4.82 10^3/uL (1.8-7.7); Neutrophils % 61.8 %; Nucleated Red Blood Cells % 0 %; Platelet Count 174 10^3/cmm (157-399); Red Blood Count 4.12 10^6/uL (3.85-5.65); Red Cell Distribution Width 12.2 % (12.1-15.1)
[2024-02-08 09:24] LABS: Alanine Aminotransferase 123 U/L (0-41); Albumin Level 3.4 g/dL (3.5-5.2); Alkaline Phosphatase 91 U/L (40-130); Aspartate Amino Transferase 129 U/L (0-40); Blood Urea Nitrogen 5 mg/dL (6-20); Calcium 8.6 mg/dL (8.5-10.5); Carbon Dioxide 22 mmol/L (22-29); Chloride 108 mmol/L (98-107); Creatinine Clr Calc Pharmacy 254.8602; Globulin 2.8 g/dL (1.3-4.6); Glomerular Filtration Rate 193.9 mL/min (90-130); Glucose 78 mg/dL (65-115); Osmolality Calculated 288 mOsm/kg (285-295); Sodium 141 mmol/L (136-145); Total Bilirubin 0.8 mg/dL (0.15-1.2); Total Protein 6.2 g/dL (6.6-8.7)
[2024-02-08] MEDS: oxyCODONE-APAP 5-325 mg Tablet 1 TAB PO ×2 (11:16→19:25)
--- NOTE | 2024-02-08 11:26 | P.PN_ITS ---
Subjective 2 Subjective: seen today abd pain better Vitals/I&O/Wt Last Vital Signs Temp 98.3 F 02/08/24 08:00 Pulse 62 02/08/24 08:00 Resp 16 02/08/24 11:16 BP 114/71 02/08/24 08:00 Pulse Ox 94 02/08/24 11:16 O2 Del Method Room Air 02/08/24 08:00 02/07/24 02/08/24 02/08/24 22:59 06:59 14:59 Intake Total 818.333 / 3120.000 50 / 3170.000 1050 / 1050 Balance 818.333 / 3120.000 50 / 3170.000 1050 / 1050 Weight last 48 hrs Weight 94.035 kg Weight 93.984 kg Weight 93.758 kg Weight 90.265 kg Physical Exam 2 Narrative: General: Patient is awake and alert. Lungs: Clear to auscultation, Abdomen: Normal bowel sounds. Abdomen is nontender o palpation in lower quadrants. Data 02/08/24 08:50 02/08/24 08:50 A&P Assessment and plan (1) Diverticulitis: Acute complicated sigmoidal diverticulitis with abscess formation and sepsis SIRS: Tachycardic and Leukocytosis with source being diverticulitis w/ abscess Abscess noted to be less than 3 cm, measuring 1.[address] imaging Patient started on Zosyn by ED provider, will continue with Zosyn atleast for 48 hours Clear liquid diet Antiemetics as needed Analgesics as needed General surgery consulted Consider outpatient colonoscopy after complete recovery (2) Transaminitis: Suspect secondary to alcohol use disorder with alcohol abuse AST greater than ALT Patient reports he drinks alcohol every other day Denies history of alcohol withdrawal Monitor for symptoms of withdrawal Will consider [facility] protocol pending clinical course (3) Tobacco use: Reports typically half a pack to 1 pack/day We discussed nicotine replacement, patient declined He would benefit from smoking cessation (4) Marijuana use: Would benefit from cessation (5) Migraines: Analgesics as needed as above Plan DVT prophylaxis: Lovenox CODE STATUS: Full code Attestations 2 Medical Necessity Statement*: requires continued antibiotics IV Diagnoses Diverticulitis K57.92 Transaminitis R74.01 Tobacco use Z72.0 Marijuana use F12.90 Migraines G43.909
--- NOTE | 2024-02-08 16:37 | P.PN_ITS ---
Subjective 2 Subjective: Patient seen and examined. He reports his pain has improved. No nausea or vomiting Vitals/I&O/Wt Last Vital Signs Temp 98.4 F 02/09/24 04:00 Pulse 61 02/09/24 04:00 Resp 18 02/09/24 04:00 BP 105/65 02/09/24 04:00 Pulse Ox 95 02/09/24 04:00 O2 Del Method Room Air 02/09/24 04:00 02/08/24 02/08/24 02/09/24 14:59 22:59 06:59 Intake Total 1530 / 1530 1698.333 / 3228.333 1193.333 / 4421.666 Balance 1530 / 1530 1698.333 / 3228.333 1193.333 / 4421.666 Weight last 48 hrs Weight 206 lb 7 oz Weight 207 lb 5 oz Physical Exam 2 Narrative: General: No acute distress, awake alert and oriented x 3 Abdomen: Soft, nondistended, much improved and mild tenderness left lower quadrant, no rebound Data 02/08/24 08:50 02/08/24 08:50 A&P Assessment and plan (1) Diverticulitis of large intestine with complication: (2) Sepsis: Plan IV antibiotics He tolerated clear liquid diet this morning and will be advanced to full liquids Keep at least 1 more day for IV antibiotics. I like him to complete a 2-week course of antibiotics, finishing with Augmentin at home. I would like a repeat CT of the abdomen pelvis with IV contrast as an outpatient in approximately 10 days, prior to his follow-up appointment with me in 2 weeks Colonoscopy in 4 to 6 weeks Recommend elective sigmoidectomy following colonoscopy Medical management per hospitalist Attestations 2 Medical Necessity Statement*: Her primary Coding Level of Care Code Acute Code for [facility] Diagnoses Diverticulitis of large intestine with complication K57.32 Sepsis A41.9
[2024-02-08] MEDS: sennosides 8.6 mg Tablet 17.1999999999999993 MG PO (20:45)
[2024-02-09] VITALS: BP 132/79; PULSE 59; RESP 18; TEMP 36.8; O2SAT 97
[2024-02-09] MEDS: sodium chloride 0.9% 1,000 ML 100 ML IV (02:42)
[2024-02-09 04:00] VITALS: BP 105/65; PULSE 61; RESP 18; TEMP 36.9; O2SAT 95
[2024-02-09] MEDS: piperacillin-tazobactam 3.375 GM in sodium chloride 0.9% (plus) 50 ML IV (05:34)
--- NOTE | 2024-02-09 06:04 | P.PN_ITS ---
Subjective 2 Subjective: Patient seen and examined. Pain improved. Tolerating full liquid diet. Vitals/I&O/Wt Last Vital Signs Temp 98.4 F 02/09/24 04:00 Pulse 61 02/09/24 04:00 Resp 18 02/09/24 04:00 BP 105/65 02/09/24 04:00 Pulse Ox 95 02/09/24 04:00 O2 Del Method Room Air 02/09/24 04:00 02/08/24 02/08/24 02/09/24 14:59 22:59 06:59 Intake Total 1530 / 1530 1698.333 / 3228.333 1193.333 / 4421.666 Balance 1530 / 1530 1698.333 / 3228.333 1193.333 / 4421.666 Weight last 48 hrs Weight 206 lb 7 oz Weight 207 lb 5 oz Physical Exam 2 Narrative: General: No acute distress, awake alert and oriented x 3 Abdomen: Soft, nondistended, much improved and mild tenderness left lower quadrant, no rebound Data 02/08/24 08:50 02/08/24 08:50 A&P Assessment and plan (1) Diverticulitis of large intestine with complication: (2) Sepsis: Plan IV antibiotics Soft diet I would like him to complete a 2-week course of antibiotics, finishing with Augmentin at home. I would like a repeat CT of the abdomen pelvis with IV contrast as an outpatient in approximately 10 days, prior to his follow-up appointment with me in 2 weeks Colonoscopy in 4 to 6 weeks Recommend elective sigmoidectomy following colonoscopy Medical management per hospitalist Attestations 2 Medical Necessity Statement*: per primary Coding Level of Care Code 63692 Diagnoses Diverticulitis of large intestine with complication K57.32 Sepsis A41.9
--- NOTE | 2024-02-09 08:01 | P.DS_ITS ---
Discharge Providers Date of Admission: 02/06/24 21:53 Date of Discharge: February 09, 2024 Attending Provider at Admission: Misha Vela MD Attending Provider at Discharge: Yanet Law MD Diagnoses at Discharge Discharge Diagnosis (1) Diverticulitis of large intestine with complication: Status: Acute (2) Sepsis: Status: Resolved Reason for Visit Reason for Visit: Burning in kidneys & Rash Hospital Course Hospital Course Patient presented to the hospital with diverticulitis and sigmoid colonic abscess. He was kept in the hospital on IV Zosyn x 48 hours. Was also seen by general surgery. Clinically was improving. Was afebrile during hospital stay. Patient sent home with 2 weeks of Augmentin. He is to have repeat imaging done in 10 days and then follow-up with Dr. Cuenca as an outpatient in 2 weeks. Elective sigmoidectomy has been recommended to the patient which she is agreeable to. Colonoscopy performed as an outpatient. Patient has been given strict instructions to return to ER with any worsening of existing symptoms or new symptoms developing. Patient demonstrates understanding. Stable at time of discharge to go home. Physical Exam Narrative: General: Patient is awake and alert. Lungs: Clear to auscultation, Abdomen: Normal bowel sounds. Abdomen is nontender o palpation in all 4 quadrants. Discharge Data Studies Completed and Pending Completed Studies During Hospitalization Category Date Time Status CT abdomen pelvis w con* [id number] Urgent Cat Scan 02/06/24 19:02 Completed Radiology Impressions Abdomen/Pelvis CT 02/06/24 19:02 IMPRESSION: 1. 12 mm small abscess containing fluid and air adjacent to the proximal sigmoid colon anteriorly, series 3, image 72, likely secondary to diverticulitis. Associated sigmoid colon wall thickening is also seen consistent with diverticulitis. 2. Small amount of nonspecific fluid in the pelvis. 3. Gallbladder is somewhat prominent, ultrasound could further characterize this. ADDENDUM: 02/06/242056 THIS REPORT CONTAINS FINDINGS THAT MAY BE CRITICAL TO PATIENT CARE. The findings were verbally communicated via telephone conference with AVANI VELASCO at 8:56 PM CDT on 02/06/2024. The findings were acknowledged and understood. Laboratory Results WBC 7.80 10^3/uL (3.29-11.43) 02/08/24 08:50 RBC 4.12 10^6/uL (3.85-5.65) 02/08/24 08:50 Hgb 13.20 g/dL (11.27-16.99) 02/08/24 08:50 Hct 41.2 % (37-53) 02/08/24 08:50 MCV 100.0 fl (82-101) 02/08/24 08:50 MCH 32.0 pg (27-33) 02/08/24 08:50 MCHC 32.0 g/dL (30-55) 02/08/24 08:50 RDW 12.2 % (12.1-15.1) 02/08/24 08:50 Plt Count 174 10^3/cmm (157-399) 02/08/24 08:50 MPV 10.5 fL (7.4-10.4) H 02/08/24 08:50 Neut % (Auto) 61.8 % 02/08/24 08:50 Lymph % (Auto) 24.1 % 02/08/24 08:50 [place] % (Auto) 9.1 % 02/08/24 08:50 Eos % (Auto) 3.7 % 02/08/24 08:50 Baso % (Auto) 1.0 % 02/08/24 08:50 Neut # (Auto) 4.82 10^3/uL (1.8-7.7) 02/08/24 08:50 Lymph # (Auto) 1.9 10^3/uL (0.8-4.8) 02/08/24 08:50 [place] # (Auto) 0.7 10^3/uL (0.2-0.9) 02/08/24 08:50 Eos # (Auto) 0.3 10^3/uL (0.0-0.8) 02/08/24 08:50 Baso # (Auto) 0.1 10^3/uL (0.0-0.1) 02/08/24 08:50 Nucleated RBC % (auto) 0 % 02/08/24 08:50 Nucleated RBCs # 0.0 /100WBC 02/08/24 08:50 Sodium 141 mmol/L (136-145) 02/08/24 08:50 Potassium 4.0 mmol/L (3.5-5.1) 02/08/24 08:50 Chloride 108 mmol/L (98-107) H 02/08/24 08:50 Carbon Dioxide 22 mmol/L (22-29) 02/08/24 08:50 Anion Gap 15.0 (5-19) 02/08/24 08:50 BUN 5 mg/dL (6-20) L 02/08/24 08:50 Creatinine 0.5 mg/dL (0.7-1.2) L 02/08/24 08:50 GFR Calculation 193.9 mL/min (90-130) H 02/08/24 08:50 Glucose 78 mg/dL (65-115) 02/08/24 08:50 Calculated Osmolality 288 mOsm/kg (285-295) 02/08/24 08:50 Calcium 8.6 mg/dL (8.5-10.5) 02/08/24 08:50 Phosphorus 3.2 mg/dL (2.5-4.5) 02/07/24 04:19 Magnesium 2.0 mg/dL (1.7-2.3) 02/07/24 04:19 Total Bilirubin 0.8 mg/dL (0.15-1.2) 02/08/24 08:50 AST 129 U/L (0-40) H 02/08/24 08:50 ALT 123 U/L (0-41) H 02/08/24 08:50 Alkaline Phosphatase 91 U/L (40-130) 02/08/24 08:50 Total Protein 6.2 g/dL (6.6-8.7) L 02/08/24 08:50 Albumin 3.4 g/dL (3.5-5.2) L 02/08/24 08:50 Globulin 2.8 g/dL (1.3-4.6) 02/08/24 08:50 Urine Color Yellow (Yellow) 02/06/24 18:53 Urine Appearance Clear (CLEAR) 02/06/24 18:53 Urine pH 6 (5-7) 02/06/24 18:53 Ur Specific Organ 1.020 (1.005-1.030) 02/06/24 18:53 Urine Protein Neg (Negative) 02/06/24 18:53 Urine Glucose (UA) Norm (Normal) 02/06/24 18:53 Urine Ketones 1+ (Negative) H 02/06/24 18:53 Urine Blood Neg (Negative) 02/06/24 18:53 Urine Nitrate Negative (Negative) 02/06/24 18:53 Urine Bilirubin 2+ (Negative) H 02/06/24 18:53 Urine Urobilinogen 4+ mg/dL (Negative) H 02/06/24 18:53 Ur Leukocyte Esterase Negative (Negative) 02/06/24 18:53 Vitals Last Vital Signs Temp 98.4 F 02/09/24 04:00 Pulse 61 02/09/24 04:00 Resp 18 02/09/24 04:00 BP 105/65 02/09/24 04:00 Pulse Ox 95 02/09/24 04:00 O2 Del Method Room Air 02/09/24 04:00 Discharge Plan Discharge Patient Disposition: Home Condition: Stable Prescriptions: New clotrimazole 1 % cream 1 applic topical BID Qty: 15 0RF amoxicillin-pot clavulanate 875-125 mg tablet 1 tab PO Q12H 14 Days Qty: 28 0RF Discontinued ibuprofen 200 mg Tablet 600 - 800 mg PO Q6H PRN (Reason: Pain) Discharge Orders: Discharge Order (Routine); Ordered 02/09/24 Ordered By: Yanet Law Other Ambulatory Orders: CT abdomen pelvis w con* [id number] (Routine) Timeframe: 10 Day Facility: [facility] - Location: [facility] Ordered By: Yanet Law Referrals: Anmol Cuenca DO [Physician] - 02/24/24 8:00 am () Zenaida Maria MD [Physician] - 4-7 days (We have notified your physician's clinic of the need for a follow-up appointment to be scheduled. If you have not heard from them within the next 2 business days, please call them directly. ) Discharge Diet: Full LIquid Patient Instructions: Diverticulitis, Betamethasone/Clotrimazole (On the skin), Amoxicillin/Clavulanate Potassium (By mouth), Diverticulitis Diet (GEN), Opioid Safety Activity Restrictions/Additional Instructions: please return to ER immediately should you have any worsening abdominal pain or development of additional symptoms such as nausea vomitting diarrhea constipation, including but not limited to blood in stool, fever, chills, lightheadedness/dizziness. Please seek medical attention immediately in case of worsening. Discharge Attestations Time Spent in Discharge Care*: less than 30 min Quality Metrics Clinical Quality Measures [ No reported AMI, CVA or VTE this stay] Coding Level of Care Code Acute Code for [facility] Diagnoses Diverticulitis of large intestine with complication K57.32 Sepsis A41.9
[2024-02-09 08:04] VITALS: BP 109/65; PULSE 59; RESP 16; TEMP 36.6; O2SAT 97
[2024-02-09 09:41] VITALS: RESP 16; O2SAT 97
[2024-02-09] MEDS: oxyCODONE-APAP 5-325 mg Tablet 1 TAB PO (09:41)
[2024-02-09 11:48] VITALS: BP 127/77; PULSE 57; RESP 18; TEMP 36.6; O2SAT 98
--- NOTE | 2024-02-09 14:24 | PC.NURSE ---
Discussed discharge medications, follow up appointments, diet order and gave patient order to come and have another CT. Patient verbalized understanding. Patient thought narcotics were going to be ordered. Dr. Law stated no narcotics needed at this time. Pain level at a 2.5 before last pain pill was given. Medications delivered to bedside.
[2024-02-09 14:35] VITALS: BP 127/77; PULSE 57; RESP 18; TEMP 36.6; O2SAT 98
== END 2024-02-09 11:30 | disposition home or self-care (01) ==
LOC: ER 21:12 → MEDSURG 21:53
PROVIDERS: Physician Assistant; Admitting Provider Internal Medicine; Emergency Provider Physician Assistant; Visit Provider Internal Medicine
DX: A41.9 Sepsis, unspecified organism (principal); K57.32 Diverticulitis of large intestine without perforation or abscess without bleeding; R74.01 Elevation of levels of liver transaminase levels; F12.90 Cannabis use, unspecified, uncomplicated; G43.909 Migraine, unspecified, not intractable, without status migrainosus; F17.200 Nicotine dependence, unspecified, uncomplicated
CPT/HCPCS: 36415; 74177; 80053; 81003; 83735; 84100; 85025; 96365; 96366; 96367; 96372; 96375; 99285; G0378; J1650; J1885; J2270; J2405; J2543; J2765; J7030; J7799; Q9967

== ENCOUNTER 2024-03-27 15:48 | Emergency (ER) | payer SELFPAY ==
[2024-03-27] VITALS (7 sets, daily range): BP systolic 138–147; BP diastolic 66–83; PULSE 72–104; RESP 16–19; TEMP 36.7; O2SAT 95–98
--- NOTE | 2024-03-27 16:01 | XRR_ITS ---
PROCEDURE INFORMATION: Exam: XR Chest Exam date and time: 03/27/2024 4:07 PM Age: 33 years old Clinical indication: Other: Weakness TECHNIQUE: Imaging protocol: Radiologic exam of the chest. Views: 1 view. COMPARISON: CT abdomen pelvis w con* [id number] 02/06/2024 8:04 PM FINDINGS: Airway: The airways are patent. Lungs: Low lung volumes causes crowding of the bronchovascular structures. No consolidations. Pleural spaces: No pleural effusions or pneumothorax. Heart/Mediastinum: Heart is of normal size and morphology. Bones/joints: No acute skeletal abnormality or aggressive osseous lesion. Soft tissues: No acute soft tissue findings. XR/XR chest 1V portable [id number] IMPRESSION: No acute thoracic pathology.
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
[2024-03-27 16:34] LABS: Basophils # 0.1 10^3/uL (0.0-0.1); Eosinophils # 0.1 10^3/uL (0.0-0.8); Eosinophils % 1.2 %; Lymphocytes # 3.8 10^3/uL (0.8-4.8); Lymphocytes % 35.3 %; Mean Corpuscular HGB Conc 33.1 g/dL (30-55); Mean Corpuscular Hemoglobin 31.9 pg (27-33); Mean Corpuscular Volume 96.4 fl (82-101); Monocytes # 0.6 10^3/uL (0.2-0.9); Monocytes % 5.6 %; Neutrophils # 6.07 10^3/uL (1.8-7.7); Neutrophils % 56.5 %; Nucleated Red Blood Cells % 0 %; Platelet Count 180 10^3/cmm (157-399); Red Blood Count 4.67 10^6/uL (3.85-5.65); Red Cell Distribution Width 14.9 % (12.1-15.1); White Blood Count 10.74 10^3/uL (3.29-11.43)
--- NOTE | 2024-03-27 16:35 | ECG_ITS ---
[facility] Test Date: 2024-03-27 Pat Name: Chris Medellin Department: Room: Gender: Male Patent Counsel: : 1990 Requested By: Shaheed Crandall Order Number: [id number] Pope MD: Artem Chang M.D. Measurements Intervals [place] Rate: 71 P: 15 IA: 161 QRS: 24 QRSD: 109 T: 26 QT: 418 QTc: 456 Interpretive Statements SINUS RHYTHM No previous ECG available for comparison Electronically Signed On 03-27-2024 16:44:54 CDT by Artem Chang M.D. [email or web address]
[2024-03-27] MEDS: ondansetron 2 mg/ML SDV 2 mL 8 MG IVP (16:55)
[2024-03-27] MEDS: HYDROmorphone 1 mg/mL INJ 1 mL IVP (16:58)
--- NOTE | 2024-03-27 17:04 | ED_ITS ---
HPI - Abdominal Pain 2 General: Chief Complaint: Abdominal Pain Stated Complaint: can't move, passing in Time Seen by Provider: 03/27/24 16:28 History of Present Illness: 33-year-old man who presents emergency r oom with left lower quadrant abdominal pain. He has been being treated for diverticulitis and a large diverticulum with antibiotics. He says he had not been able to get back in with his surgeon and pain has become much worse over the last couple of days. Today it was so bad that this caused him to have some nausea. He has not had any vomiting. He is quite anxious. He completed 2 weeks of Augmentin. Review of Systems 2 Narrative: Constitutional symptoms: Negative except as documented in HPI. Skin symptoms: Negative except as documented in HPI. Eye symptoms: Negative except as documented in HPI. ENMT symptoms: Negative except as documented in HPI. Respiratory symptoms: Negative except as documented in HPI. Cardiovascular symptoms: Negative except as documented in HPI. Gastrointestinal symptoms: Negative except as documented in HPI. Genitourinary symptoms: Negative except as documented in HPI. Musculoskeletal symptoms: Negative except as documented in HPI. Neurologic symptoms: Negative except as documented in HPI. Psychiatric symptoms: Negative except as documented in HPI. Endocrine symptoms: Negative except as documented in HPI. PFSH ED 2 PFSH: Medical History Migraines Surgical History History of surgery on arm Family History Mother Irritable bowel syndrome (IBS) Social History Smoking and tobacco/nicotine status: current every day tobacco/nicotine user Alcohol intake: current Substance/Drug Use: current Physical Exam 2 Narrative: EXAM NARRATIVE: General: Alert, no acute distress. Skin: Warm, dry. Head: Normocephalic, atraumatic. Neck: Supple, trachea midline. Eye: Extraocular movements are intact. Ears, nose, mouth and throat: mucosa moist. Cardiovascular: Regular, Normal peripheral perfusion. Respiratory: Lungs are clear to auscultation, respirations are non-labored, breath sounds are equal, Symmetrical chest wall expansion. Gastrointestinal: Soft, left lower quadrant tenderness, Non distended Musculoskeletal: Normal ROM, no deformity. Neurological: Alert and oriented, No focal neurological deficit observed. Psychiatric: Cooperative, patient is anxious Course 2 Vital Signs: Vital signs: Vital Signs Temperature 98.0 F 03/27/24 15:54 Pulse Rate 82 03/27/24 17:30 Respiratory Rate 19 H 03/27/24 17:30 Blood Pressure 140/66 03/27/24 17:30 Pulse Oximetry 95 03/27/24 17:30 Oxygen Delivery Me thod Room Air 03/27/24 17:30 MDM - Abdominal Pain Medical Decision Making Medical decision making: Differential diagnosis including but not limited to and based on the above HPI, review of systems and physical exam: Basic lab work ordered to look for leukocytosis for worsening infection. CT scan to evaluate for worsening diverticulitis. Orders placed to evaluate differential diagnosis based on the above differential, HPI and physical exam Lab Review: Laboratory results were reviewed and interpreted by myself the emergency room physician. Mild leukocytosis with a white count 10.7. Hemoglobin stable at 14.9. Platelets at 180. BUN/creatinine are 7 and 0.7. Liver enzymes are up slightly. He needs to follow with his primary care doctor for this in the near future. CT of the abdomen pelvis with contrast: Improvement of abscess but he does have a bit of a phlegmon. Still with some diverticulitis. This was reviewed and interpreted by myself the emergency room physician. I also reviewed the radiology report. I reviewed the patient's medical record. Reexamination: Patient remained stable. Pain is improved some. He seems less anxious with pain control. No increased work of breathing. I will place the patient on another round of antibiotics as the diverticulitis does not seem completely resolved but has improved some. He needs to follow-up with Dr. Cuenca in the near future. Assessment and plan: Diverticulitis Abdominal pain ?IV Dilaudid and Zofran in the emergency room. - Discharged home - Discussed findings and plan with patient. Answered any questions. - All laboratory values were reviewed and interpreted personally by myself, the ER physician - All imaging was reviewed and interpreted personally by myself, the ER physician. - Evaluation and treatment of this problem were appropriate in the emergency setting Lab Data 03/27/24 16:18 03/27/24 16:18 Labs/Radiology: Radiology Impressions Chest X-Ray 03/27/24 16:01 IMPRESSION: No acute thoracic pathology. Abdomen/Pelvis CT 03/27/24 16:30 IMPRESSION: Improving sigmoid diverticulitis. The extraluminal abscess has resolved but a small phlegmon persists. Laboratory Results WBC 10.74 10^3/uL (3.29-11.43) 03/27/24 16:18 RBC 4.67 10^6/uL (3.85-5.65) 03/27/24 16:18 Hgb 14.90 g/dL (11.27-16.99) 03/27/24 16:18 Hct 45.0 % (37-53) 03/27/24 16:18 MCV 96.4 fl (82-101) 03/27/24 16:18 MCH 31.9 pg (27-33) 03/27/24 16:18 MCHC 33.1 g/dL (30-55) 03/27/24 16:18 RDW 14.9 % (12.1-15.1) 03/27/24 16:18 Plt Count 180 10^3/cmm (157-399) 03/27/24 16:18 MPV 10.0 fL (7.4-10.4) 03/27/24 16:18 Neut % (Auto) 56.5 % 03/27/24 16:18 Lymph % (Auto) 35.3 % 03/27/24 16:18 [place] % (Auto) 5.6 % 03/27/24 16:18 Eos % (Auto) 1.2 % 03/27/24 16:18 Baso % (Auto) 1.0 % 03/27/24 16:18 Neut # (Auto) 6.07 10^3/uL (1.8-7.7) 03/27/24 16:18 Lymph # (Auto) 3.8 10^3/uL (0.8-4.8) 03/27/24 16:18 [place] # (Auto) 0.6 10^3/uL (0.2-0.9) 03/27/24 16:18 Eos # (Auto) 0.1 10^3/uL (0.0-0.8) 03/27/24 16:18 Baso # (Auto) 0.1 10^3/uL (0.0-0.1) 03/27/24 16:18 Nucleated RBC % (auto) 0 % 03/27/24 16:18 Nucleated RBCs # 0.0 /100WBC 03/27/24 16:18 Sodium 145 mmol/L (136-145) 03/27/24 16:18 Potassium 3.5 mmol/L (3.5-5.1) 03/27/24 16:18 Chloride 106 mmol/L (98-107) 03/27/24 16:18 Carbon Dioxide 15 mmol/L (22-29) L 03/27/24 16:18 Anion Gap 27.5 (5-19) H 03/27/24 16:18 BUN 7 mg/dL (6-20) 03/27/24 16:18 Creatinine 0.7 mg/dL (0.7-1.2) 03/27/24 16:18 GFR Calculation 131.5 mL/min (90-130) H 03/27/24 16:18 Glucose 90 mg/dL (65-115) 03/27/24 16:18 Calculated Osmolality 298 mOsm/kg (285-295) H 03/27/24 16:18 Calcium 9.1 mg/dL (8.5-10.5) 03/27/24 16:18 Total Bilirubin 1.6 mg/dL (0.15-1.2) H 03/27/24 16:18 AST 145 U/L (0-40) H 03/27/24 16:18 ALT 51 U/L (0-41) H 03/27/24 16:18 Alkaline Phosphatase 140 U/L (40-130) H 03/27/24 16:18 Total Protein 8.0 g/dL (6.6-8.7) 03/27/24 16:18 Albumin 4.7 g/dL (3.5-5.2) 03/27/24 16:18 Globulin 3.3 g/dL (1.3-4.6) 03/27/24 16:18 Lipase 30 U/L (13-60) 03/27/24 16:18 All radiology interpretation(s) finalized by discharge Discharge Plan Discharge Patient Disposition: Home Clinical Impression: Diverticulitis Condition: Stable Prescriptions: New hydrocodone-acetaminophen 5-325 mg tablet 1 tab PO Q6H PRN (Reason: pain) Qty: 20 0RF metronidazole 500 mg tablet 500 mg PO Q8H 10 Days Qty: 30 0RF ciprofloxacin HCl 500 mg tablet 500 mg PO BID 10 Days Qty: 20 0RF ondansetron 8 mg tablet,disintegrating 8 mg PO .q6 PRN (Reason: nausea and vomiting) Qty: 14 0RF Miralax 17 gram/dose powder 17 g PO DAILY Qty: 510 0RF Rx Instructions: Take 1 scoop daily while taking pain medications. No Action pantoprazole [Protonix] 40 mg tablet,delayed release (DR/EC) 40 mg PO BID 42 Days Qty: 84 1RF amoxicillin-pot clavulanate 875-125 mg tablet 1 tab PO BID 14 Days Qty: 28 0RF clotrimazole 1 % cream 1 applic topical BID Qty: 15 0RF Discharge Orders: Discharge ED (Routine); Ordered 03/27/24 Ordered By: Sahra Martinez Referrals: Anmol Cuenca DO [Physician] - 4-7 days (Please call for follow-up) Discharge Diet: Usual diet Discharge Activity: Increase activity as tolerated Patient Instructions: Diverticulitis (ED), Opioid Safety, Pain Management Activity Restrictions/Additional Instructions: You need to follow-up with your primary care physician and have your liver enzymes checked again in the next week or 2. Thank you for choosing [facility] for your healthcare needs today. Please realize this is an emergency room and that we are providing you with a medical screening exam and this may not be complete and all inclusive of all the testing and or work up that you may need to determine your ailment or severity of your illness. You have been screened and evaluated and felt safe for discharge. Health conditions do change or evolve sometimes and as such it is important that you follow up with your Primary Doctor to be re checked, 3-5 days is a general good time frame for follow up. You are always welcome to return to the ED for re assessment if your symptoms are worsening or you have new concerns Coding Level of Care Code ED [employer] for John Renteria
[2024-03-27] MEDS: iohexol 350 mg/mL 500 mL Btl (per mL) IV (17:11)
[2024-03-27 17:19] LABS: Alanine Aminotransferase 51 U/L (0-41); Albumin Level 4.7 g/dL (3.5-5.2); Alkaline Phosphatase 140 U/L (40-130); Anion Gap 27.5 (5-19); Aspartate Amino Transferase 145 U/L (0-40); Blood Urea Nitrogen 7 mg/dL (6-20); Calcium 9.1 mg/dL (8.5-10.5); Carbon Dioxide 15 mmol/L (22-29); Chloride 106 mmol/L (98-107); Creatinine Clr Calc Pharmacy 178.7816; Globulin 3.3 g/dL (1.3-4.6); Glomerular Filtration Rate 131.5 mL/min (90-130); Glucose 90 mg/dL (65-115); Lipase 30 U/L (13-60); Osmolality Calculated 298 mOsm/kg (285-295); Potassium 3.5 mmol/L (3.5-5.1); Sodium 145 mmol/L (136-145); Total Bilirubin 1.6 mg/dL (0.15-1.2)
[2024-03-27 18:36] LABS: C Reactive Protein 5.5 mg/L (0.0-4.9)
== END 2024-03-27 18:15 | disposition home or self-care (01) ==
PROVIDERS: Emergency Medicine; Emergency Provider Emergency Medicine
DX: K57.92 Diverticulitis of intestine, part unspecified, without perforation or abscess without bleeding (principal); Z72.0 Tobacco use
CPT/HCPCS: 71045; 74177; 80053; 83690; 85025; 86140; 93005; 96374; 96375; 99285; J1170; J2405; Q9967

== ENCOUNTER 2024-04-29 18:44 | Emergency (ER) | payer MEDICAID, SELFPAY ==
[2024-04-29 19:05] VITALS: BP 152/84; PULSE 99; RESP 17; TEMP 36.8; O2SAT 98; BMI 27.1
--- NOTE | 2024-04-29 19:43 | CTR_ITS ---
PROCEDURE INFORMATION: Exam: CT Abdomen And Pelvis With Contrast Exam date and time: 04/29/2024 8:10 PM Age: 33 years old Clinical indication: Abdominal pain; Localized; Left lower quadrant (llq); Patient HX: C/O llq pain. History of sigmoid abscess and ibs. TECHNIQUE: Imaging protocol: Computed tomography of the abdomen and pelvis with contrast. Radiation optimization: All CT scans at this facility use at least one of these dose optimization techniques: automated exposure control; mA and/or kV adjustment per patient size (includes targeted exams where dose is matched to clinical indication); or iterative reconstruction. Contrast material: OMNI 350; Contrast volume: 100 ml; Contrast route: INTRAVENOUS (IV); COMPARISON: CT abdomen pelvis w con* [id number] 03/27/2024 5:07 PM RADIATION DOSE METRICS: Total DLP (mGy-cm): 754.92 FINDINGS: Liver: Stable subcentimeter hypodensity inferiorly in the right hepatic lobe, too small to characterize but favored to be benign. Gallbladder and biliary ducts: Normal. No calcified stones. No ductal dilation. Pancreas: Normal. No ductal dilation. Spleen: Normal. No splenomegaly. Adrenal glands: Normal. No mass. Kidneys and ureters: Normal. No hydronephrosis. Stomach and bowel: Several diverticula are again seen along the sigmoid colon. Mild segmental mural thickening within the proximal sigmoid colon with pericolonic fat stranding, similar to minimally improved since 03/27/2024. No discrete fluid collection to suggest abscess. Appendix: No evidence of appendicitis. Intraperitoneal space: Unremarkable. No free air. No significant fluid collection. Vasculature: Unremarkable. No abdominal aortic aneurysm. Lymph nodes: Unremarkable. No enlarged lymph nodes. Urinary bladder: Unremarkable as visualized. Reproductive: Unremarkable as visualized. Bones/joints: Unremarkable. No acute fracture. Soft tissues: Unremarkable. CT/CT abdomen pelvis w con* [id number] IMPRESSION: 1. Ongoing acute diverticulitis along the sigmoid colon, similar to slightly improved since 03/27/2024. No discrete abscess formation. 2. No new acute findings within the abdomen/pelvis.
--- NOTE | 2024-04-29 19:55 | ED_ITS ---
HPI - Abdominal Pain 2 General: Chief Complaint: Abdominal Pain Stated Complaint: known absess in colon, in stabbing pain Time Seen by Provider: 04/29/24 19:47 History of Present Illness: 33-year-old male patient comes in today with history of diverticulitis and abscess in the colon. Patient had been treated since February for recurrent diverticulitis and abscess of the colon. Patient was concerned due to starting having some pain over the last 2 days at night. Patient was concerned that he may be having a bout of diverticulitis or worsening of his abscess. Review of the medical record noted that patient had 2 CTs 1 in February and then 1 in March that showed improvement of the abscess of the colon. Patient had not gone ahead with surgery of the colon due to cost of the procedure and surgery. Patient came in today due to the increase in pain and wanting another course of antibiotic. Patient denies any nausea vomiting or blood in stool. Related Data Previous Rx's Medication Instructions Recorded clotrimazole 1 % topical cream 1 applic topical BID #15 grams 02/06/24 pantoprazole 40 mg tablet,delayed 40 mg PO BID 6 weeks #84 tabs 02/24/24 release (Protonix) hydrocodone 5 mg-acetaminophen 325 1 tab PO Q6H PRN pain #20 tabs 03/27/24 mg tablet ondansetron 8 mg disintegrating 8 mg PO .q6 PRN nausea and 03/27/24 tablet vomiting #14 tabs polyethylene glycol 3350 17 17 g PO DAILY #510 grams 03/27/24 gram/dose oral powder (Miralax) amoxicillin 875 mg-potassium 1 tab PO BID 2 weeks #28 tabs 04/29/24 clavulanate 125 mg tablet hydrocodone 5 mg-acetaminophen 325 1 tab PO Q6H PRN pain #12 tabs 04/29/24 mg tablet Allergies Allergy/AdvReac Type Severity Reaction Status Date / Time cefixime [From Suprax] Allergy Unknown Verified 04/29/24 19:10 Sulfa (Sulfonamide Allergy Unknown Verified 04/29/24 19:10 Antibiotics) Review of Systems 2 General: Reports: 10 or more systems reviewed and unremarkable except in HPI and below PFSH ED 2 PFSH: Medical History Migraines Surgical History History of surgery on arm Family History Mother Irritable bowel syndrome (IBS) Social History Smoking and tobacco/nicotine status: current every day tobacco/nicotine user Alcohol intake: current Substance/Drug Use: current Physical Exam 2 Const: COMMON NORMALS: alert HENMT: COMMON NORMALS: normocephalic HEAD & SCALP: normocephalic Neck/C-Spine: COMMON NORMALS: full ROM Resp: COMMON NORMALS: normal respiratory effort and clear to auscultation bilaterally AUSCULTATION: clear to auscultation bilaterally Cardio: COMMON NORMALS: regular rate RATE: regular rate GI: COMMON NORMALS: Soft to palpation PALPATION: Yes Soft to palpation and Yes Tenderness to palpation present (GI) : COMMON NORMALS: Yes no CVA tenderness BLADDER/KIDNEY EXAM: Yes no CVA tenderness Back/Pelvis: COMMON NORMALS: no CVA tenderness Extremity: COMMON NORMALS: full ROM Neuro: SENSORIUM/ORIENTATION: Yes alert Skin: COMMON NORMALS: turgor normal GENERAL SKIN EXAM: turgor normal Course 2 Vital Signs: Vital signs: Vital Signs Temperature 98.2 F 04/29/24 19:05 Pulse Rate 98 04/29/24 21:10 Respiratory Rate 16 04/29/24 21:10 Blood Pressure 142/68 04/29/24 21:10 Pulse Oximetry 99 04/29/24 21:10 Oxygen Delivery Me thod Room Air 04/29/24 19:58 MDM - Abdominal Pain Medical Decision Making 33-year-old male patient comes in today for recheck of his diverticulitis and abscess of the colon. Patient appears nontoxic. Patient appears in no acute distress. Respirations are even lungs are clear to auscultation. Vital signs are normal except for some elevated blood pressure at 152/84. Differential diagnosis includes diverticulitis, abscess of the colon, colitis, bowel perforation. CBC noted some mild leukocytosis at 11.47. CT of the abdomen pelvis noted no perforation and continued improvement of diverticulitis with no obvious abscess formation. Patient be placed back on Augmentin and will keep appointment for follow-up with Dr. Cuenca. Lab Data 04/29/24 20:05 04/29/24 20:05 Labs/Radiology: Radiology Impressions Abdomen/Pelvis CT 04/29/24 19:43 IMPRESSION: 1. Ongoing acute diverticulitis along the sigmoid colon, similar to slightly improved since 03/27/2024. No discrete abscess formation. 2. No new acute findings within the abdomen/pelvis. Laboratory Results WBC 11.47 10^3/uL (3.29-11.43) H 04/29/24 20:05 RBC 4.83 10^6/uL (3.85-5.65) 04/29/24 20:05 Hgb 15.20 g/dL (11.27-16.99) 04/29/24 20:05 Hct 46.3 % (37-53) 04/29/24 20:05 MCV 95.9 fl (82-101) 04/29/24 20:05 MCH 31.5 pg (27-33) 04/29/24 20:05 MCHC 32.8 g/dL (30-55) 04/29/24 20:05 RDW 13.1 % (12.1-15.1) 04/29/24 20:05 Plt Count 147 10^3/cmm (157-399) L 04/29/24 20:05 MPV 11.9 fL (7.4-10.4) H 04/29/24 20:05 Neut % (Auto) 70.4 % 04/29/24 20:05 Lymph % (Auto) 21.7 % 04/29/24 20:05 [place] % (Auto) 4.5 % 04/29/24 20:05 Eos % (Auto) 2.4 % 04/29/24 20:05 Baso % (Auto) 0.7 % 04/29/24 20:05 Neut # (Auto) 8.07 10^3/uL (1.8-7.7) H 04/29/24 20:05 Lymph # (Auto) 2.5 10^3/uL (0.8-4.8) 04/29/24 20:05 [place] # (Auto) 0.5 10^3/uL (0.2-0.9) 04/29/24 20:05 Eos # (Auto) 0.3 10^3/uL (0.0-0.8) 04/29/24 20:05 Baso # (Auto) 0.1 10^3/uL (0.0-0.1) 04/29/24 20:05 Nucleated RBC % (auto) 0 % 04/29/24 20:05 Nucleated RBCs # 0.0 /100WBC 04/29/24 20:05 Sodium 140 mmol/L (136-145) 04/29/24 20:05 Potassium 3.6 mmol/L (3.5-5.1) 04/29/24 20:05 Chloride 102 mmol/L (98-107) 04/29/24 20:05 Carbon Dioxide 24 mmol/L (22-29) 04/29/24 20:05 Anion Gap 17.6 (5-19) 04/29/24 20:05 BUN 11 mg/dL (6-20) 04/29/24 20:05 Creatinine 0.6 mg/dL (0.7-1.2) L 04/29/24 20:05 GFR Calculation 157.1 mL/min (90-130) H 04/29/24 20:05 Glucose 102 mg/dL (65-115) 04/29/24 20:05 Calculated Osmolality 290 mOsm/kg (285-295) 04/29/24 20:05 Lactic Acid 1.1 mmol/L (0.5-2.2) 04/29/24 20:05 Calcium 10.2 mg/dL (8.5-10.5) 04/29/24 20:05 Total Bilirubin 1.2 mg/dL (0.15-1.2) 04/29/24 20:05 AST 107 U/L (0-40) H 04/29/24 20:05 ALT 80 U/L (0-41) H 04/29/24 20:05 Alkaline Phosphatase 111 U/L (40-130) 04/29/24 20:05 C-Reactive Protein 4.6 mg/L (0.0-4.9) 04/29/24 20:05 Total Protein 8.6 g/dL (6.6-8.7) 04/29/24 20:05 Albumin 5.3 g/dL (3.5-5.2) H 04/29/24 20:05 Globulin 3.3 g/dL (1.3-4.6) 04/29/24 20:05 All radiology interpretation(s) finalized by discharge Discharge Plan Discharge Patient Disposition: Home Clinical Impression: Diverticulitis Condition: Stable Prescriptions: New hydrocodone-acetaminophen 5-325 mg tablet 1 tab PO Q6H PRN (Reason: pain) Qty: 12 0RF Continued amoxicillin-pot clavulanate 875-125 mg tablet 1 tab PO BID 14 Days Qty: 28 0RF No Action pantoprazole [Protonix] 40 mg tablet,delayed release (DR/EC) 40 mg PO BID 42 Days Qty: 84 1RF clotrimazole 1 % cream 1 applic topical BID Qty: 15 0RF hydrocodone-acetaminophen 5-325 mg tablet 1 tab PO Q6H PRN (Reason: pain) Qty: 20 0RF ondansetron 8 mg tablet,disintegrating 8 mg PO .q6 PRN (Reason: nausea and vomiting) Qty: 14 0RF Miralax 17 gram/dose powder 17 g PO DAILY Qty: 510 0RF Rx Instructions: Take 1 scoop daily while taking pain medications. Discharge Orders: Discharge ED (Routine); Ordered 04/29/24 Ordered By: Ziggy Littlejohn Patient Instructions: Opioid Safety, Pain Management Coding Level of Care Code ED Cold Header for John Renteria
[2024-04-29 19:58] VITALS: BP 150/106; PULSE 82; RESP 17; O2SAT 99
[2024-04-29] MEDS: iohexol 350 mg/mL 500 mL Btl (per mL) IV (20:12)
[2024-04-29 20:18] LABS: Basophils # 0.1 10^3/uL (0.0-0.1); Basophils % 0.7 %; Eosinophils # 0.3 10^3/uL (0.0-0.8); Eosinophils % 2.4 %; Hematocrit 46.3 % (37-53); Lymphocytes # 2.5 10^3/uL (0.8-4.8); Lymphocytes % 21.7 %; Mean Corpuscular HGB Conc 32.8 g/dL (30-55); Mean Corpuscular Hemoglobin 31.5 pg (27-33); Mean Corpuscular Volume 95.9 fl (82-101); Mean Platelet Volume 11.9 fL (7.4-10.4); Monocytes # 0.5 10^3/uL (0.2-0.9); Monocytes % 4.5 %; Neutrophils # 8.07 10^3/uL (1.8-7.7); Neutrophils % 70.4 %; Nucleated Red Blood Cells % 0 %; Platelet Count 147 10^3/cmm (157-399); Red Blood Count 4.83 10^6/uL (3.85-5.65); Red Cell Distribution Width 13.1 % (12.1-15.1); White Blood Count 11.47 10^3/uL (3.29-11.43)
[2024-04-29 20:35] LABS: Lactic Sepsis W/Reflex 1.1 mmol/L (0.5-2.2)
[2024-04-29 20:36] LABS: Alanine Aminotransferase 80 U/L (0-41); Albumin Level 5.3 g/dL (3.5-5.2); Alkaline Phosphatase 111 U/L (40-130); Anion Gap 17.6 (5-19); Aspartate Amino Transferase 107 U/L (0-40); Blood Urea Nitrogen 11 mg/dL (6-20); C Reactive Protein 4.6 mg/L (0.0-4.9); Calcium 10.2 mg/dL (8.5-10.5); Carbon Dioxide 24 mmol/L (22-29); Chloride 102 mmol/L (98-107); Creatinine Clr Calc Pharmacy 209.0358; Globulin 3.3 g/dL (1.3-4.6); Glomerular Filtration Rate 157.1 mL/min (90-130); Glucose 102 mg/dL (65-115); Osmolality Calculated 290 mOsm/kg (285-295); Potassium 3.6 mmol/L (3.5-5.1); Sodium 140 mmol/L (136-145); Total Bilirubin 1.2 mg/dL (0.15-1.2); Total Protein 8.6 g/dL (6.6-8.7)
[2024-04-29 21:10] VITALS: BP 142/68; PULSE 98; RESP 16; O2SAT 99
[2024-04-29] MEDS: HYDROcodone-acetaminophen 5-325 mg Tablet 1 TAB PO (21:23)
[2024-04-29] MEDS: amoxicillin-clav 875-125 mg Tablet 1 TAB PO (21:23)
[2024-04-29 21:26] VITALS: BP 144/72; PULSE 73; RESP 12; O2SAT 98
== END 2024-04-29 21:27 | disposition home or self-care (01) ==
PROVIDERS: Emergency Medicine; Emergency Provider Nurse Practitioner Family
DX: K57.92 Diverticulitis of intestine, part unspecified, without perforation or abscess without bleeding (principal); Z72.0 Tobacco use
CPT/HCPCS: 74177; 80053; 83605; 85025; 86140; 99285; Q9967

== ENCOUNTER 2024-05-24 17:10 | Emergency (ER) | payer MEDICAID, SELFPAY ==
[2024-05-24 17:13] VITALS: BP 138/90; PULSE 90; RESP 16; TEMP 36.8; O2SAT 97
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
[2024-05-24 18:02] VITALS: BP 138/86; PULSE 7; RESP 16; O2SAT 95
--- NOTE | 2024-05-24 18:04 | CTR_ITS ---
PROCEDURE INFORMATION: Exam: CT Abdomen And Pelvis Without Contrast Exam date and time: 05/24/2024 6:28 PM Age: 33 years old Clinical indication: Abdominal pain; Additional info: Abd pain, HX of diverticulitis TECHNIQUE: Imaging protocol: Computed tomography of the abdomen and pelvis without contrast. Axial, coronal and sagittal reformatted images were created and reviewed. Radiation optimization: All CT scans at this facility use at least one of these dose optimization techniques: automated exposure control; mA and/or kV adjustment per patient size (includes targeted exams where dose is matched to clinical indication); or iterative reconstruction. COMPARISON: CT abdomen pelvis w con* [id number] 04/29/2024 8:10 PM RADIATION DOSE METRICS: Total DLP (mGy-cm): 728 FINDINGS: Liver: Diffuse hepatic steatosis. Gallbladder and biliary ducts: Dependent hyperattenuation in the gallbladder lumen, likely secondary to sludge and/or small stones. Pancreas: Unremarkable. Spleen: Unremarkable. Adrenal glands: Normal. No mass. Kidneys and ureters: No mass. No radiodense calculi. No hydronephrosis. Stomach and bowel: Focal area of wall thickening and associated pericolonic stranding in the proximal sigmoid colon in a region containing multiple diverticula, similar to prior. No obstruction. No pneumatosis. Appendix: Normal. Intraperitoneal space: No ascites. Small focus of extraluminal gas and phlegmonous change along the anterior aspect of the inflamed segment, similar to prior. Vasculature: Unremarkable. No aneurysm. Lymph nodes: Small mesenteric and retroperitoneal lymph nodes, nonspecific in appearance. No pathologically enlarged lymph nodes. Urinary bladder: Focal area of asymmetric wall thickening of the urinary bladder dome, which is mildly tethered to the inflamed segment of sigmoid colon, concerning for developing colovesicular fistula, similar to prior. Reproductive: Unremarkable. Bones/joints: No acute osseous abnormality. Mild degenerative changes. Soft tissues: Unremarkable. CT/CT abdomen pelvis wo con [id number] IMPRESSION: 1. No significant interval change. 2. Additional findings, as above.
[2024-05-24 18:30] VITALS: PULSE 93; RESP 16; O2SAT 96
[2024-05-24 18:47] LABS: Basophils # 0.1 10^3/uL (0.0-0.1); Basophils % 0.8 %; Eosinophils # 0.2 10^3/uL (0.0-0.8); Eosinophils % 1.6 %; Hematocrit 47.4 % (37-53); Lymphocytes # 2.9 10^3/uL (0.8-4.8); Lymphocytes % 29.8 %; Mean Corpuscular Hemoglobin 33.2 pg (27-33); Mean Corpuscular Volume 97.7 fl (82-101); Mean Platelet Volume 10.4 fL (7.4-10.4); Monocytes # 0.6 10^3/uL (0.2-0.9); Monocytes % 5.7 %; Neutrophils # 5.96 10^3/uL (1.8-7.7); Neutrophils % 61.8 %; Nucleated Red Blood Cells % 0 %; Platelet Count 149 10^3/cmm (157-399); Red Blood Count 4.85 10^6/uL (3.85-5.65); Red Cell Distribution Width 14.9 % (12.1-15.1); White Blood Count 9.64 10^3/uL (3.29-11.43)
[2024-05-24 19:00] VITALS: BP 126/72; PULSE 72; O2SAT 98
[2024-05-24 19:00] LABS: Alanine Aminotransferase 67 U/L (0-41); Albumin Level 4.6 g/dL (3.5-5.2); Alkaline Phosphatase 118 U/L (40-130); Anion Gap 20.7 (5-19); Aspartate Amino Transferase 147 U/L (0-40); Blood Urea Nitrogen 7 mg/dL (6-20); Carbon Dioxide 21 mmol/L (22-29); Chloride 106 mmol/L (98-107); Creatinine Clr Calc Pharmacy 209.0358; Globulin 2.8 g/dL (1.3-4.6); Glomerular Filtration Rate 157.1 mL/min (90-130); Glucose 83 mg/dL (65-115); Lipase 26 U/L (13-60); Osmolality Calculated 295 mOsm/kg (285-295); Potassium 3.7 mmol/L (3.5-5.1); Sodium 144 mmol/L (136-145); Total Bilirubin 0.9 mg/dL (0.15-1.2); Total Protein 7.4 g/dL (6.6-8.7)
[2024-05-24] MEDS: HYDROcodone-acetaminophen 5-325 mg Tablet 1 TAB PO (19:01)
[2024-05-24] MEDS: metroNIDAZOLE 500 MG Tablet PO (20:02)
[2024-05-24] MEDS: levoFLOXacin 750 mg Tablet PO (20:02)
[2024-05-24 20:05] VITALS: BP 118/69; PULSE 85; O2SAT 95
== END 2024-05-24 20:06 | disposition home or self-care (01) ==
PROVIDERS: Emergency Medicine; Emergency Provider Nurse Practitioner Family
DX: K57.92 Diverticulitis of intestine, part unspecified, without perforation or abscess without bleeding (principal); Z72.0 Tobacco use
CPT/HCPCS: 36415; 74176; 80053; 83690; 85025; 99284